=== PATIENT | female | born 1940 | race Caucasian/White ===

== ENCOUNTER 2018-05-27 12:58 | Inpatient (IN) | payer MEDICARE, OTHER ==
[~2018-05-27] VITALS: Ht 162.6 cm; Wt 73.3 kg
[2018-05-27 16:16] VITALS: BP 128/61
[2018-05-27 19:00] VITALS: BP 123/72
[2018-05-27] MEDS ORDERED: CYMBALTA60 M1 PO (20:20)
[2018-05-27] MEDS ORDERED: DEPAKOTE250 M1 PO (20:20)
[2018-05-27] MEDS ORDERED: magnesium PO (20:21)
[2018-05-27] MEDS ORDERED: ATIVAN1 M1 PO (20:21)
[2018-05-27] MEDS ORDERED: TRYPTOPHAN PO (20:22)
[2018-05-27] MEDS ORDERED: AMBIEN10 MG PO (20:23)
[2018-05-27] MEDS ORDERED: DULOXETINE PO (20:24)
[2018-05-28 06:23] VITALS: BP 11/72
[2018-05-28 18:28] VITALS: BP 120/78
[2018-05-29 06:27] VITALS: BP 116/74
[2018-05-29 18:03] VITALS: BP 122/64
[2018-05-30 06:04] VITALS: BP 122/77
[2018-05-30 18:52] VITALS: BP 134/77
[2018-05-31 06:26] VITALS: BP 120/76
[2018-05-31 13:50] LABS: ALBUMIN 3.2 g/dL (3.5-5.0); POTASSIUM 3.8 mmol/L (3.6-5.0); TOTAL BILIRUBIN 0.7 mg/dL (0.2-1.3)
[2018-05-31 13:51] LABS: EOS # 0.2 (0.04-0.40); EOS % 2.8 % (1.0-5.0); HEMATOCRIT 30.8 % (37.0-47.0); LYMPH# 0.9 (1.50-4.00); MEAN CELL VOLUME 92 fl (78-100); MEAN CORPUSCULAR HEMOGLOBIN 30 pg (27-31); MEAN CORPUSCULAR HGB CONC 33 g/dL (33-37); MEAN PLATELET VOLUME 8.9 fl (7.4-10.4); MONO # 0.4 (0.20-0.80); NEU # 3.8 (1.40-6.50); PLATELET COUNT 273 K/mm3 (130-400); RED BLOOD COUNT 3.36 M/mm3 (4.10-5.30); RED CELL DISTRIBUTION WIDTH 12.2 % (11.5-14.5); WHITE BLOOD COUNT 5.3 K/mm3 (4.8-10.8)
[2018-05-31 18:16] VITALS: BP 118/75
[2018-06-01 06:01] VITALS: BP 102/73
[2018-06-01 12:17] VITALS: BP 126/78
[2018-06-01 12:40] LABS: EOS # 0.2 (0.04-0.40); EOS % 2.4 % (1.0-5.0); HEMATOCRIT 35.8 % (37.0-47.0); HEMOGLOBIN 11.5 g/dL (12.5-16.0); LYMPH# 1.1 (1.50-4.00); MEAN CELL VOLUME 92 fl (78-100); MEAN CORPUSCULAR HEMOGLOBIN 29 pg (27-31); MEAN CORPUSCULAR HGB CONC 32 g/dL (33-37); MEAN PLATELET VOLUME 8.6 fl (7.4-10.4); MONO # 0.5 (0.20-0.80); PLATELET COUNT 311 K/mm3 (130-400); RED BLOOD COUNT 3.91 M/mm3 (4.10-5.30); RED CELL DISTRIBUTION WIDTH 12.5 % (11.5-14.5); WHITE BLOOD COUNT 6.8 K/mm3 (4.8-10.8)
[2018-06-01 12:54] LABS: ALBUMIN 3.8 g/dL (3.5-5.0); CALCIUM 9.2 mg/dL (8.4-10.2); POTASSIUM 3.7 mmol/L (3.6-5.0); TOTAL BILIRUBIN 0.8 mg/dL (0.2-1.3); TOTAL PROTEIN 6.9 g/dL (6.3-8.2)
[2018-06-01 12:56] LABS: PARTIAL THROMBOPLASTIN TIME 24.8 SECONDS (21.0-32.0); PROTHROMBIN TIME 10.4 SECONDS (9.0-12.0)
[2018-06-01 14:23] LABS: URINE APPEARANCE CLEAR; URINE BILIRUBIN NEGATIVE (NEGATIVE); URINE BLOOD NEGATIVE (NEGATIVE); URINE COLOR YELLOW; URINE GLUCOSE NEGATIVE (NEGATIVE); URINE KETONE NEGATIVE (NEGATIVE); URINE LEUKOCYTE ESTERASE TRACE (NEGATIVE); URINE MUCUS PRESENT (NOT PRESENT); URINE NITRATE NEGATIVE (NEGATIVE); URINE PROTEIN(semi-quant) NEGATIVE (NEGATIVE); URINE UROBILINOGEN 8 mg/dL (NORMAL)
[2018-06-01 18:59] VITALS: BP 105/55
[2018-06-02 06:22] VITALS: BP 108/70
[2018-06-02 18:25] VITALS: BP 100/65
[2018-06-03 06:19] VITALS: BP 114/72
[2018-06-03 18:05] VITALS: BP 107/68
[2018-06-04 06:20] VITALS: BP 106/66
[2018-06-04 18:24] VITALS: BP 103/67
[2018-06-05 06:10] VITALS: BP 131/69
[2018-06-05 18:18] VITALS: BP 111/73
[2018-06-06 06:26] VITALS: BP 111/71
[2018-06-06 18:10] VITALS: BP 101/58
[2018-06-07 06:24] VITALS: BP 132/81
[2018-06-07 18:16] VITALS: BP 102/65
[2018-06-08 06:38] VITALS: BP 118/75
[2018-06-08 18:07] VITALS: BP 111/70
[2018-06-09 06:09] VITALS: BP 123/76
[2018-06-09 18:21] VITALS: BP 112/76
[2018-06-10 06:44] VITALS: BP 112/72
[2018-06-10 08:18] LABS: URINE APPEARANCE CLEAR; URINE BILIRUBIN NEGATIVE (NEGATIVE); URINE BLOOD NEGATIVE (NEGATIVE); URINE COLOR YELLOW; URINE GLUCOSE NEGATIVE (NEGATIVE); URINE KETONE NEGATIVE (NEGATIVE); URINE LEUKOCYTE ESTERASE 1+ (NEGATIVE); URINE MUCUS PRESENT (NOT PRESENT); URINE NITRATE NEGATIVE (NEGATIVE); URINE PROTEIN(semi-quant) TRACE mg/dL (NEGATIVE); URINE UROBILINOGEN NORMAL (NORMAL)
[2018-06-10 18:10] VITALS: BP 117/67
[2018-06-11 06:22] VITALS: BP 117/74
[2018-06-11 18:23] VITALS: BP 110/69
[2018-06-12 06:15] VITALS: BP 145/78
[2018-06-12 18:44] VITALS: BP 120/77
[2018-06-13 06:39] VITALS: BP 126/83
[2018-06-13 18:26] VITALS: BP 89/64
[2018-06-14 06:27] VITALS: BP 131/76
[2018-06-14] MEDS ORDERED: ACETAMINOPHEN-H1 TA2 PO (07:59)
[2018-06-14] MEDS ORDERED: CHILDREN'S ASPI81 M1 PO (07:59)
[2018-06-14] MEDS ORDERED: DEPAKOTE250 M1 PO (08:00)
[2018-06-14] MEDS ORDERED: CYMBALTA30 M1 PO (08:00)
[2018-06-14] MEDS ORDERED: DURAGESIC1 EACH TD (08:00)
[2018-06-14] MEDS ORDERED: ATIVAN0.5 MG PO (08:01)
[2018-06-14] MEDS ORDERED: AMBIEN5 M1 PO (08:01)
[2018-06-14] MEDS ORDERED: DOCUSATE SOD100 MG PO (08:03)
[2018-06-14] MEDS ORDERED: HEALTHYLAX17 GM/Dose PO (08:04)
[2018-06-14] MEDS ORDERED: ONDANSETRON HYDR4 MG PO (08:04)
[2018-06-14 08:14] VITALS: BP 131/76
== END 2018-06-14 10:03 | DRG 560 ==
LOC: MED/SURG 12:58
PROVIDERS: Internal Medicine; Physician Assistant; ADMIT Nurse Practitioner Primary Care
DX: S72.141D Displaced intertrochanteric fracture of right femur, subsequent encounter for closed fracture with routine healing (principal); R45.851 Suicidal ideations; N39.0 Urinary tract infection, site not specified; F32.3 Major depressive disorder, single episode, severe with psychotic features; W18.30XD Fall on same level, unspecified, subsequent encounter; F41.8 Other specified anxiety disorders; K21.9 Gastro-esophageal reflux disease without esophagitis; D64.9 Anemia, unspecified
CPT/HCPCS: J2060

== ENCOUNTER 2019-01-15 17:03 | Emergency (ER) | payer MEDICARE, OTHER ==
[~2019-01-15 17:03] MED LIST: ACETAMINOPHEN-H1 TA2 PO; AMBIEN10 MG PO; AMBIEN5 M1 PO; ATIVAN0.5 MG PO; ATIVAN1 M1 PO; CHILDREN'S ASPI81 M1 PO; CYMBALTA30 M1 PO; CYMBALTA60 M1 PO; DEPAKOTE250 M1 PO; DOCUSATE SOD100 MG PO; DULOXETINE PO; DURAGESIC1 EACH TD; HEALTHYLAX17 GM/Dose PO; ONDANSETRON HYDR4 MG PO; TRYPTOPHAN PO; magnesium PO
[2019-01-15 18:13] LABS: EOS # 0.1 (0.04-0.40); HEMATOCRIT 39.7 % (37.0-47.0); HEMOGLOBIN 13.1 g/dL (12.5-16.0); LYMPH# 1.4 (1.50-4.00); MEAN CELL VOLUME 90 fl (78-100); MEAN CORPUSCULAR HEMOGLOBIN 30 pg (27-31); MEAN CORPUSCULAR HGB CONC 33 g/dL (33-37); MEAN PLATELET VOLUME 8.7 fl (7.4-10.4); MONO # 0.5 (0.20-0.80); NEU # 3.2 (1.40-6.50); PLATELET COUNT 289 K/mm3 (130-400); RED BLOOD COUNT 4.43 M/mm3 (4.10-5.30); RED CELL DISTRIBUTION WIDTH 13.1 % (11.5-14.5); WHITE BLOOD COUNT 5.2 K/mm3 (4.8-10.8)
[2019-01-15 18:24] LABS: ALBUMIN 3.7 g/dL (3.4-4.8); POTASSIUM 4.2 mmol/L (3.5-5.1)
[2019-01-15 18:25] LABS: CALCIUM 9.2 mg/dL (8.3-10.5)
[2019-01-15 18:26] LABS: TOTAL PROTEIN 7.1 g/dL (6.2-8.1)
[2019-01-15 18:28] LABS: TOTAL BILIRUBIN 0.4 mg/dL (0.2-1.2)
[2019-01-16 00:30] LABS: URINE APPEARANCE CLOUDY; URINE COLOR YELLOW
[2019-01-16 00:31] LABS: URINE BILIRUBIN NEGATIVE (NEGATIVE); URINE BLOOD TRACE (NEGATIVE); URINE GLUCOSE NEGATIVE (NEGATIVE); URINE KETONE NEGATIVE (NEGATIVE); URINE LEUKOCYTE ESTERASE 2+ (NEGATIVE); URINE NITRATE NEGATIVE (NEGATIVE); URINE PROTEIN(semi-quant) TRACE mg/dL (NEGATIVE); URINE UROBILINOGEN NORMAL (NORMAL); URINE WBC 31-50 /hpf (0-3)
[2019-01-16 00:32] LABS: URINE MUCUS PRESENT (NOT PRESENT)
[2019-01-16 11:37] VITALS: BP 132/68
== END 2019-01-16 12:02 ==
LOC: ED 17:03
PROVIDERS: Family Medicine
DX: F20.9 Schizophrenia, unspecified (principal); Z91.14 Patient's other noncompliance with medication regimen
CPT/HCPCS: J1630